=== PATIENT | male | born 1945 | race Caucasian/White ===

== ENCOUNTER 2022-02-10 13:00 | Inpatient (IN) | payer MEDICARE, BC ==
[2022-02-10 12:37] VITALS: BMI 20.9
[2022-02-10 13:51] LABS: Hemoglobin 13.4 g/dL (13.5-17.5); Mean Corpuscular HGB CONC 32.5 g/dL (32.0-36.0); Mean Corpuscular Hemoglobin 26.4 pg (27.0-33.0); Mean Corpuscular Volume 81.1 fl (81.2-95.1); Mean Platelet Volume 8.1 fl (7.4-10.4); Platelet Count 579 10x3/uL (150-450); RBC Distribution Width 14.5 % (11.5-14.5); Red Blood Cell (RBC) Count 5.08 10x6/uL (4.32-5.72); White Blood Cell (WBC) Count 12.8 10x3/uL (3.5-10.5)
[2022-02-10 14:09] LABS: Anion Gap 13 mmol/L (10-20); BUN (Urea Nitrogen) 16 mg/dL (8.4-25.7); Calc. Creatinine Clearance 0 mL/min (70-130); Calcium 8.4 mg/dL (7.8-10.44); Carbon Dioxide 21 mmol/L (23-31); Chloride 108 mmol/L (98-107); Estimated GFR 86; Glucose 117 mg/dL (83-110); Potassium 4.1 mmol/L (3.5-5.1); Sodium 138 mmol/L (136-145)
[2022-02-11] MEDS ORDERED: Lidocaine 1% MPF 2 ML VIAL ONE (06:27)
[2022-02-11] MEDS ORDERED: CEFAZOLIN 2 GM VIAL ONE (06:27)
[2022-02-11] MEDS ORDERED: Sodium Chloride 0.9% 100 ML ONE (06:27)
[2022-02-11] MEDS ORDERED: EPINEPHrine 1 MG/ML AMP ONE (06:39)
[2022-02-11] MEDS ORDERED: Bupivacaine PF 0.5% 30 ML VIAL ONE (06:39)
[2022-02-11] MEDS ORDERED: fentaNYL PF 100 MCG/2 ML SYRINGE ONE (06:53)
[2022-02-11 07:12] LABS: SARS-CoV-2 NAA Rapid Test Not Detected (NotDetected)
[2022-02-11] MEDS ORDERED: PROPOFOL 200 MG/20 ML VIAL ONE (07:29)
[2022-02-11] MEDS ORDERED: Rocuronium Bromide 10 MG/ML (10ML VIAL) ONE (07:29)
[2022-02-11] MEDS ORDERED: NEOSTIGMINE 3 MG/3 ML SYR 3 MG/3 ML SYRINGE ONE (07:29)
[2022-02-11] MEDS ORDERED: Dexamethasone 20 MG/5 ML VIAL ONE (07:29)
[2022-02-11] MEDS ORDERED: Glycopyrrolate 0.2 MG/ML 5 ML SYRINGE ONE (07:29)
[2022-02-11] MEDS ORDERED: Ondansetron PF 4 MG/2 ML Vial ONE (07:29)
[2022-02-18 12:39] LABS: Fungus Stain Final report (.)
[2022-03-12 13:02] LABS: Fungus Culture Final report (.)
== END 2022-02-11 10:06 | disposition home or self-care (01) | DRG 168 ==
LOC: SURG A 02-11 05:54
PROVIDERS: ADMIT Thoracic Surgery (Cardiothoracic Vascular Surgery); ATTEND Thoracic Surgery (Cardiothoracic Vascular Surgery)
PROC: 07B74ZX Excision of Thorax Lymphatic, Percutaneous Endoscopic Approach, Diagnostic (ICD-10-PCS; principal; 2022-02-11)
PROC: 0BDB8ZX Extraction of Left Lower Lobe Bronchus, Via Natural or Artificial Opening Endoscopic, Diagnostic (ICD-10-PCS; 2022-02-11)
DX: C34.32 Malignant neoplasm of lower lobe, left bronchus or lung (principal); R59.0 Localized enlarged lymph nodes; Z20.822 Contact with and (suspected) exposure to COVID-19; Z87.891 Personal history of nicotine dependence; Z80.9 Family history of malignant neoplasm, unspecified; Z87.01 Personal history of pneumonia (recurrent); J44.9 Chronic obstructive pulmonary disease, unspecified
CPT/HCPCS: 80048; 85027; 86850; 86870; 86900; 86901; 86905; 86922; 87070; 87077; 87102; 87116; 87186; 87205; 87206; 88112; 88305; 88331; 88341; 88342; 93005; 93010; J0171; J0690; J1100; J2405; J2704; J3490; S0020; U0002

== ENCOUNTER 2022-02-14 15:20 | Inpatient (IN) | payer MEDICARE, BC ==
[2022-02-14] MEDS ORDERED: Iopamidol-370 76% 500 ML 1 ML ONE (15:34)
[2022-02-14] MEDS ORDERED: Diltiazem 125 MG/25 ML ONE (15:35)
[2022-02-14 15:52] LABS: Hemoglobin 13.9 g/dL (14.0-18.0); Mean Corpuscular HGB CONC 31.8 g/dL (32.0-36.0); Mean Corpuscular Hemoglobin 26.8 pg (27.0-31.0); Mean Corpuscular Volume 84.2 fL (78.0-98.0); Mean Platelet Volume 6.4 fL (7.4-10.4); Platelet Count 451 thou/uL (130-400); RBC Distribution Width 14.1 % (11.5-14.5); Red Blood Cell (RBC) Count 5.18 mill/uL (4.70-6.10); White Blood Cell (WBC) Count 15.3 thou/uL (4.8-10.8)
[2022-02-14 16:15] LABS: ALT (SGPT) 21 U/L (8-55); AST (SGOT) 39 U/L (5-34); Albumin 2.8 g/dL (3.4-4.8); Alkaline Phosphatase 237 U/L (40-110); Anion Gap 19 mmol/L (10-20); BUN (Urea Nitrogen) 18 mg/dL (8.4-25.7); Bilirubin, Total 1.8 mg/dL (0.2-1.2); Calc. Creatinine Clearance 0 mL/min (70-130); Calcium 8.3 mg/dL (7.8-10.44); Carbon Dioxide 15 mmol/L (23-31); Chloride 104 mmol/L (98-107); Estimated GFR 53; Globulin 4.2 g/dL (2.4-3.5); Glucose 165 mg/dL (83-110); Sodium 134 mmol/L (136-145)
[2022-02-14 16:17] LABS: Band 14 % (5-11); Lymphocytes 8 % (21-51); MDiff Complete? YES; Monocytes 6 % (0-10); Neutrophil 72 % (42-75); Platelet Morphology Comment Appears Increased; Polychromasia SLIGHT = 2-3 cells (100X) (0-2/hpf)
[2022-02-14] MEDS ORDERED: Piperacillin/Tazobactam 3.375 GM VIAL ONE (16:51)
[2022-02-14] MEDS ORDERED: Vancomycin 1 GM/200 ML BAG ONE (17:33)
[2022-02-14 19:32] LABS: Lactic Acid 2.6 mmol/L (0.5-2.2)
[2022-02-14 19:33] LABS: Anion Gap 14 mmol/L (10-20); BUN (Urea Nitrogen) 18 mg/dL (8.4-25.7); Calc. Creatinine Clearance 0 mL/min (70-130); Calcium 7.5 mg/dL (7.8-10.44); Carbon Dioxide 17 mmol/L (23-31); Chloride 107 mmol/L (98-107); Estimated GFR 75; Glucose 136 mg/dL (83-110); Potassium 3.8 mmol/L (3.5-5.1); Sodium 134 mmol/L (136-145)
[2022-02-14] MEDS ORDERED: Ondansetron PF 4 MG/2 ML Vial IVP PRN (20:35)
[2022-02-14] MEDS ORDERED: Acetaminophen 650 MG Suppository PR PRN (20:35)
[2022-02-14] MEDS ORDERED: Acetaminophen 325 MG TAB PO PRN (20:35)
[2022-02-14] MEDS ORDERED: Ondansetron ODT 4 MG TAB PO PRN (20:35)
[2022-02-14] MEDS: Sodium Chloride 0.9% 1,000 ML IV SCH (22:45)
[2022-02-14] MEDS: Piperacillin/Tazobactam 3.375 GM in Sodium Chloride 0.9% 100 ML IVPB SCH (22:50)
[2022-02-15 00:22] LABS: Lactic Acid 2.1 mmol/L (0.5-2.2)
[2022-02-15] MEDS: Vancomycin 1 GM in Premix Bag 1 BAG IVPB SCH ×2 (03:55→14:30)
[2022-02-15] MEDS: Benzonatate 100 MG CAP PO PRN ×4 (04:36→22:17)
[2022-02-15] MEDS ORDERED: Vancomycin 1.5 GRAM/300 ML BAG 1.5 GM in Premix Bag 1 BAG IVPB SCH (05:00)
[2022-02-15 05:05] LABS: ALT (SGPT) 16 U/L (8-55); AST (SGOT) 30 U/L (5-34); Albumin 2.1 g/dL (3.4-4.8); Alkaline Phosphatase 171 U/L (40-110); Anion Gap 14 mmol/L (10-20); BUN (Urea Nitrogen) 17 mg/dL (8.4-25.7); Bilirubin, Total 1.7 mg/dL (0.2-1.2); Calc. Creatinine Clearance 70 mL/min (70-130); Calcium 7.4 mg/dL (7.8-10.44); Carbon Dioxide 17 mmol/L (23-31); Chloride 109 mmol/L (98-107); Estimated GFR 91; Globulin 3.4 g/dL (2.4-3.5); Glucose 93 mg/dL (83-110); Potassium 3.6 mmol/L (3.5-5.1); Protein, Total 5.5 g/dL (5.8-8.1); Sodium 136 mmol/L (136-145)
[2022-02-15 05:27] LABS: Band 35 % (5-11); Hemoglobin 11.8 g/dL (14.0-18.0); Lymphocytes 2 % (21-51); MDiff Complete? YES; Mean Corpuscular HGB CONC 33.9 g/dL (32.0-36.0); Mean Corpuscular Hemoglobin 28.7 pg (27.0-31.0); Mean Corpuscular Volume 84.5 fL (78.0-98.0); Mean Platelet Volume 6.2 fL (7.4-10.4); Metamyelocyte 1 % (0-0); Monocytes 12 % (0-10); Myelocyte 1 % (0-0); Neutrophil 49 % (42-75); Platelet Count 360 thou/uL (130-400); RBC Distribution Width 13.8 % (11.5-14.5); Red Blood Cell (RBC) Count 4.12 mill/uL (4.70-6.10); White Blood Cell (WBC) Count 12.7 thou/uL (4.8-10.8)
[2022-02-15] MEDS: Piperacillin/Tazobactam 3.375 GM in Sodium Chloride 0.9% 100 ML IVPB SCH ×3 (05:41→22:14)
[2022-02-15] MEDS: Enoxaparin Sodium 40 MG/0.4 ML SYRINGE SC SCH (11:38)
[2022-02-15] MEDS: Sodium Chloride 0.9% 1,000 ML IV SCH (11:39)
[2022-02-15 12:47] VITALS: BMI 20.2
[2022-02-15] MEDS ORDERED: Digoxin 0.125 MG TAB PO SCH (14:45)
[2022-02-15] MEDS ORDERED: Digoxin 0.25 MG TAB PO SCH ×2 (15:00→21:00)
[2022-02-15] MEDS: guaiFENesin ER 600 MG TAB PO SCH ×2 (20:21→23:50)
[2022-02-15] MEDS ORDERED: guaiFENesin ER 600 MG TAB PO SCH (21:00)
[2022-02-16 00:06] VITALS: BP 147/70
[2022-02-16] MEDS ORDERED: Furosemide 40 MG/4 ML VIAL SLOW IVP SCH (01:00)
[2022-02-16] MEDS: Sodium Chloride 0.9% 1,000 ML IV SCH ×2 (01:59→16:08)
[2022-02-16] MEDS ORDERED: Acetylcysteine 20% 200 MG/ML 30 ML VIAL INH SCH ×2 (02:00→07:00)
[2022-02-16] MEDS ORDERED: Glycopyrrolate 1 MG TAB PO SCH (02:00)
[2022-02-16] MEDS: Vancomycin 1 GM in Premix Bag 1 BAG IVPB SCH (02:07)
[2022-02-16 02:46] LABS: Actual Bicarbonate (HCO3a) 20.2 mEq/L (22-28); Base Excess (BEa) -5.2 mEq/L (-2.0 to +3.0); CO2 Tension 39.2 mmHg (35.0-45.0); Hemoglobin (Hb) 12.9 g/dL (14.0-18.0); pH, Arterial 7.33 (7.35-7.45)
[2022-02-16 02:47] LABS: Calcium, Ionized (arterial) 1.12 mmol/L (1.12-1.30); Carboxyhemoglobin (COHb) 0.3 gm% (0.0-3.0); Potassium - ABG Lab 3.45 mmol/L (3.70-5.30); Puncture Site RBR
[2022-02-16] MEDS: Piperacillin/Tazobactam 3.375 GM in Sodium Chloride 0.9% 100 ML IVPB SCH ×3 (05:59→22:00)
[2022-02-16 08:53] LABS: #Lymphocytes 0.9 thou/uL (1.20-3.40); #Monocytes 1.4 thou/uL (0.11-0.59); #Neutrophils 8.1 thou/uL (1.40-6.50); %Basophils 0.3 % (0.0-1.0); %Eosinophils 0.1 % (0.0-10.0); %Lymphocytes 8.8 % (21.0-51.0); %Monocytes 13.2 % (0.0-10.0); %Neutrophils 77.7 % (42.0-75.0); Hemoglobin 11.7 g/dL (14.0-18.0); Mean Corpuscular HGB CONC 31.6 g/dL (32.0-36.0); Mean Corpuscular Hemoglobin 26.8 pg (27.0-31.0); Mean Corpuscular Volume 84.8 fl (78.0-98.0); Mean Platelet Volume 6.7 fL (7.4-10.4); Platelet Count 340 thou/uL (130-400); Red Blood Cell (RBC) Count 4.35 mill/uL (4.70-6.10); White Blood Cell (WBC) Count 10.4 thou/uL (4.8-10.8)
[2022-02-16] MEDS ORDERED: Digoxin 0.25 MG TAB PO SCH ×2 (09:00→20:30)
[2022-02-16 09:13] LABS: Anion Gap 13 mmol/L (10-20); BUN (Urea Nitrogen) 19 mg/dL (8.4-25.7); Calc. Creatinine Clearance 60 mL/min (70-130); Calcium 7.8 mg/dL (7.8-10.44); Carbon Dioxide 19 mmol/L (23-31); Chloride 108 mmol/L (98-107); Estimated GFR 78; Glucose 104 mg/dL (83-110); Potassium 3.3 mmol/L (3.5-5.1); Sodium 137 mmol/L (136-145)
[2022-02-16] MEDS: guaiFENesin ER 600 MG TAB PO SCH ×2 (09:29→21:00)
[2022-02-16] MEDS: Benzonatate 100 MG CAP PO PRN (09:29)
[2022-02-16] MEDS: Enoxaparin Sodium 40 MG/0.4 ML SYRINGE SC SCH (09:30)
[2022-02-16] MEDS ORDERED: Lorazepam 2 MG/ML VIAL SLOW IVP PRN (14:59)
[2022-02-16] MEDS: Morphine 4 MG/ML VIAL SLOW IVP PRN (16:05)
[2022-02-16] MEDS: Mometasone 100 MCG/Formoterol 5 MCG 120 PUFF INHALER INH SCH (18:38)
[2022-02-17] MEDS: Morphine 4 MG/ML VIAL SLOW IVP PRN (03:17)
[2022-02-17] MEDS: Piperacillin/Tazobactam 3.375 GM in Sodium Chloride 0.9% 100 ML IVPB SCH (06:43)
[2022-02-17] MEDS: Sodium Chloride 0.9% 1,000 ML IV SCH (06:43)
[2022-02-17 07:18] VITALS: TEMP 99.2
[2022-02-17] MEDS: Mometasone 100 MCG/Formoterol 5 MCG 120 PUFF INHALER INH SCH (07:27)
== END 2022-02-17 09:15 | disposition hospice, home (50) | DRG 871 ==
LOC: ERS 15:20 → 2NO 18:43 → IMCU/EMU 02-16 03:00
PROVIDERS: ADMIT Student in an Organized Health Care Education/Training Program; ATTEND Student in an Organized Health Care Education/Training Program
PROC: 5A09357 Assistance with Respiratory Ventilation, Less than 24 Consecutive Hours, Continuous Positive Airway Pressure (ICD-10-PCS; principal; 2022-02-16)
PROC: 5A0935A Assistance with Respiratory Ventilation, Less than 24 Consecutive Hours, High Flow/Velocity Cannula (ICD-10-PCS; 2022-02-16)
DX: A41.9 Sepsis, unspecified organism (principal); J18.9 Pneumonia, unspecified organism; J96.21 Acute and chronic respiratory failure with hypoxia; J98.11 Atelectasis; N17.9 Acute kidney failure, unspecified; E87.1 Hypo-osmolality and hyponatremia; I47.1 Supraventricular tachycardia; C34.90 Malignant neoplasm of unspecified part of unspecified bronchus or lung; C77.1 Secondary and unspecified malignant neoplasm of intrathoracic lymph nodes; Z66 Do not resuscitate; R53.81 Other malaise; Z51.5 Encounter for palliative care; Y95 Nosocomial condition; I48.91 Unspecified atrial fibrillation; R65.20 Severe sepsis without septic shock; J43.9 Emphysema, unspecified; R91.1 Solitary pulmonary nodule; E80.6 Other disorders of bilirubin metabolism; Z87.891 Personal history of nicotine dependence
CPT/HCPCS: 36415; 36416; 71045; 71275; 80048; 80053; 82805; 83605; 83880; 84443; 84484; 85025; 87040; 93005; 94640; 94660; 94760; 96361; 96365; 96367; 96375; 96376; J0132; J1650; J1940; J2060; J2270; J2543; J3370; J3490; J7050; J7620; Q9967